=== PATIENT | male | born 1980 ===

== ENCOUNTER 2018-04-25 03:20 | Emergency (ER) | payer MEDICAID ==
[2018-04-25 03:53] VITALS: PULSE 117; RESP 20; TEMP 98.7; O2SAT 95
[2018-04-25] MEDS ORDERED: Tdap Vaccine 0.5 ml Vial (10-64 yrs) IM ONE (04:42)
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
== END 2018-04-25 05:20 | disposition left against medical advice (07) ==
LOC: H.ER 03:20
DX: S09.90XA Unspecified injury of head, initial encounter (principal); S00.31XA Abrasion of nose, initial encounter; Z98.890 Other specified postprocedural states